=== PATIENT | male | born 1950 | race Caucasian/White ===

== ENCOUNTER 2016-10-08 12:39 | Observation (INO) ==
[2016-10-08] MEDS ORDERED: NS 1,000 ML IV ONE (13:43)
[2016-10-08 14:02] LABS: ALLEN TEST YES; BE 0.3 mmoll (-3.0-3.0); BLOOD TYPE ARTERIAL; DRAW SITE R RADIAL; METHB 1.3 % (0.0-1.5); O2(CT) 16.1 mL/dL (15.0-23.0); PCO2(98.6) 48 mmHg (35-45); PO2(98.6) 55 mmHg (60-100); SAMPLE BLOOD; SAO2 93.7 % (95.0-100.0); THB 12.7 g/dL (11.5-17.4); pH(98.6) 7.35 (7.35-7.45)
[2016-10-08 14:03] LABS: MODALITY ROOM AIR
--- NOTE | 2016-10-08 14:32 | Diag Imaging Result Document ---
PROCEDURE NAME: CHEST-PORTABLE - 10/08/2016 AP PORTABLE CHEST AT 1350 HOURS: FINDINGS: There are no previous studies available for comparison. There is no evidence of acute cardiac or pulmonary disease. IMPRESSION: No acute disease.
[2016-10-08 14:45] LABS: BASO% 0.1 % (0.0-0.8); EOS# 0.01 X1000 (0.0-0.7); EOS% 0.1 % (0.0-10.0); HEMATOCRIT 40.6 % (42.0-52.0); HEMOGLOBIN 13.3 g/dL (14.0-18.0); LYMPH# 0.52 X1000 (1.2-3.4); LYMPH% 6.1 % (20.5-51.1); MANUAL DIFF NEEDED? NO; MCH 33.1 PG (27-31); MCHC 32.8 g/dL (33-37); MONO# 0.21 X1000 (0.11-0.59); MONO% 2.5 % (1.7-9.3); MPV 11.2 FL (7.4-10.4); NEUT% 91.2 % (42.2-75.2); PLT 90 X1000 (130-400); RBC 4.02 XMIL (4.7-6.1)
[2016-10-08 14:48] LABS: INR 1.09; PROTIME 11.5 Seconds (9.2-11.7); PTT 25.5 Seconds (22.0-36.0)
[2016-10-08 14:54] LABS: ALBUMIN 4.1 g/dL (3.5-5.0); CALCIUM 9.5 mg/dL (8.8-10.2); MAGNESIUM 1.7 mg/dL (1.5-2.7); TOTAL BILIRUBIN 0.6 mg/dL (0.20-1.00); TOTAL PROTEIN 7.4 g/dL (6.3-8.3)
--- NOTE | 2016-10-08 16:01 | EKG Report ---
Test Performed on : 10/08/2016 2:56:35 PM Test Reason : Chest Pain Blood Pressure : / mmHG Vent. Rate : 074 BPM Atrial Rate : 074 BPM P-R Int : 162 ms QRS Dur : 100 ms QT Int : 414 ms P-R-T Axes : 023 -42 014 degrees QTc Int : 459 ms Normal sinus rhythm. Left axis deviation Moderate voltage criteria for LVH, may be normal variant Abnormal ECG When compared with ECG of 15-FEB-2016 08:56, No significant change was found Unconfirmed Result
[2016-10-08] MEDS ORDERED: SOLU-MEDROL IV ONE (16:49)
[2016-10-08] MEDS ORDERED: DUONEB (A & A) INH ONE (16:49)
--- NOTE | 2016-10-08 17:41 | PROVIDER DOCUMENTATION ---
This chart was entered by Stephy Dumont Scribe, acting as scribe for Rush Delgadillo MD. HPI-General Adult - General Chief Complaint: Post Op Complaint Stated Complaint: weakness, dizziness Time Seen by Provider: 10/08/16 13:00 Source: patient Allergies/Adverse Reactions: Patient Allergies Allergy/AdvReac Type Severity Reaction Status Date / Time adebrin Allergy NAUSEA/VOMI Uncoded 10/08/16 13:00 TING Home Medications: Home Medication List Medication Instructions Recorded Confirmed Last Taken Type Cyanocobalamin (Vitamin B-12) 1,000 mcg PO DAILY 02/15/16 10/08/16 10/07/16 History [Vitamin B-12] Finasteride 5 mg PO DAILY 02/15/16 10/08/16 10/07/16 History Levothyroxine [Synthroid] 125 microgm PO DAILY 02/15/16 10/08/16 10/08/16 04:30 History Omeprazole [Prilosec] 40 mg PO DAILY 02/15/16 10/08/16 10/07/16 History Pyridoxine HCl [Vitamin B-6] 100 mg PO DAILY 02/15/16 10/08/16 10/07/16 History Donepezil [Aricept] 10 mg PO DAILY 10/03/16 10/08/16 10/08/16 04:30 History Aspirin [Aspir-Low] 81 mg PO DAILY 10/08/16 10/08/16 Unknown History Escitalopram Oxalate [Lexapro] 1 tab PO DAILY 10/08/16 10/08/16 Unknown History Hydrocodone/Acetaminophen [Lortab 1 tab PO Q4-6H PRN PRN 10/08/16 10/08/16 Unknown History 5-325 mg Tablet] - History of Present Illness -Gen Adult Nature of Presenting Problems: Pt is 66 y/o M presents to the ED with weakness. Pt states having hernia repair this am. Pt states when getting home he felt weak. Pt denies pain. Location of Pain/Injury: reports: generalized Pain Radiation: reports: no radiation Quality of Pain: reports: aching Severity: reports: mild Onset/Duration: reports: this morning Timing: reports: still present Context/Activities at Onset: reports: light activity Modifying Factors: improves with: nothing Associated Symptoms: reports: weakness. denies: anxiety, arm pain, back/neck pain, chest pain, constipation, cough, diaphoresis, diarrhea, dizziness, EENT symptoms, fatigue, fever/chills, genitourinary problems, headaches, heartburn, joint pain, loss of appetite, malaise, muscle aches, sinus congestion/drainage, nausea, rash, seizure, shortness of breath, sensory/motor loss, pain with inspiration, swelling/mass in abdomen, syncope, vomiting, trouble walking Similar Symptoms Previously?: No Recently seen or treated by another doctor?: No Review of Systems - Adult - REVIEW OF SYSTEMS - ADULT Constitutional: reports: no symptoms reported Eyes: reports: no symptoms reported Ears, Nose, Mouth & Throat: reports: no symptoms reported Cardiovascular: reports: no symptoms reported Respiratory: reports: no symptoms reported Gastrointestinal: reports: no symptoms reported Genitourinary: reports: no symptoms reported Musculoskeletal: reports: muscle weakness. denies: bone pain, back pain, joint pain, neck pain Integumentary: reports: no symptoms reported Neurological: reports: no symptoms reported Psychiatric: reports: no symptoms reported Endocrine: reports: no symptoms reported Hematologic/Lymphatic: reports: no symptoms reported Allergic/Immunologic: reports: no symptoms reported All Other Systems: Reviewed and Negative Past History - Adult - PAST MEDICAL HISTORY-ADULT Review of Records: reports: Nursing Assessment Review, Medications Reviewed, Social history reviewed & non-contributory. Major Childhood Illnesses: reports: denies history Cardiovascular: reports: denies history Respiratory: reports: sleep apnea Gastrointestinal: reports: denies history Obstetrical/Gynecological: reports: denies history Genitourinary: reports: kidney stones Musculoskeletal: reports: denies history Neurological: reports: denies history Endocrine/Immune: reports: thyroid disorder Other Conditions: reports: denies history - PRIOR SURGERIES/PROCEDURES Surgical/Procedure History: reports: appendectomy, cholecystectomy, tonsillectomy, hernia repair - IMMUNIZATION STATUS Childhood Immunizations: See Nurse Assessment Flu Vaccine: See Nurse Assessment - FAMILY HISTORY Family History: reviewed, not pertinent - SOCIAL HISTORY Smoking: denies Substance Use: denies Living Situation: family Physical Exam-General - PHYSICAL EXAM-ADULT Initial Vital Signs Reviewed: Yes - CONSTITUTIONAL General Appearance: appears well, alert, no apparent distress - EYES Eyes: PERRL/EOMI, pink conjunctivae - HEAD, EARS, NOSE, MOUTH & THROAT HENMT: normocephalic/atraumatic, moist mucous membranes, normal ENT inspection, TMs normal, pharynx normal - NECK Neck: non-tender, full range of motion, supple, normal inspection - RESPIRATORY Respiratory: chest non-tender, lungs clear, normal breath sounds, no pleuratic chest pain, no respiratory distress, no accessory muscle use - CARDIOVASCULAR Cardiovascular: normal peripheral pulses, regular rate, rhythm, no edema, no gallop, no JVD, no murmur - GASTROINTESTINAL (ABDOMEN) Abdominal Exam: normal bowel sounds, soft, no organomegaly, no pulsatile mass, distended, tenderness - LYMPHATIC Lymphatic: no adenopathy - MUSCULOSKELETAL Back Exam: normal inspection, no CVA tenderness, no vertebral tenderness Extremity: normal range of motion, non-tender, normal gait, normal inspection, no pedal edema, no calf tenderness, normal capillary refill, pelvis stable - SKIN Integumentary: normal color, normal turgor, warm/dry - NEUROLOGIC Neurologic: grossly normal, no motor/sensory deficits - PSYCHIATRIC Psych/Mental Status: normal mood/affect, normal thought content, normal thought process, oriented x 3 Progress - PLAN OF CARE/RESULTS Progress/Plan/Lab Results: Vital Signs - 8 hr 10/08/16 12:50 Temperature 97.4 F L Pulse Rate 90 Respiratory Rate 18 Blood Pressure 115/69 O2 Sat by Pulse Oximetry 89 L Laboratory Tests 10/08/16 10/08/16 10/08/16 13:51 14:21 14:21 WBC 8.57 RBC 4.02 L Hgb 13.3 L Hct 40.6 L MCV 101.0 H MCH 33.1 H MCHC 32.8 L RDW Std Deviation 14.0 Plt Count 90 L MPV 11.2 H Neut % (Auto) 91.2 H Lymph % (Auto) 6.1 L [place] % (Auto) 2.5 Eos % (Auto) 0.1 Baso % (Auto) 0.1 Neut # (Auto) 7.82 H Lymph # (Auto) 0.52 L [place] # (Auto) 0.21 Eos # (Auto) 0.01 Baso # (Auto) 0.01 PT INR PTT (Actin FS) D-Dimer Specimen Type ARTERIAL Sample Site R RADIAL pH 7.35 pCO2 48 H pO2 55 L HCO3 25.0 Base Excess 0.3 Oxyhemoglobin 90.3 L ABG O2 Sat (Calculated) 16.1 ABG O2 Saturation 93.7 L ABG Carboxyhemoglobin 2.30 ABG Methemoglobin 1.3 Anthony Test YES A-a O2 Difference 35.0 Total Hemoglobin 12.7 Lactate 1.70 Blood Gas Modality ROOM AIR FiO2 % 21.0 Sodium 137 Potassium 5.0 Chloride 99 Carbon Dioxide 28 Anion Gap 10 BUN 19 Creatinine 1.3 H Estimated GFR/1.73 m2 55 BUN/Creatinine Ratio 15 Glucose 141 H Calculated Osmolality 278 Calcium 9.5 Magnesium 1.7 Total Bilirubin 0.60 AST 28 ALT 32 Alkaline Phosphatase 82 Creatine Kinase 204 Troponin T Yna-A-Uaepxlvokbl Pept Total Protein 7.4 Albumin 4.1 Globulin 3.3 Albumin/Globulin Ratio 1.2 10/08/16 10/08/16 10/08/16 14:21 14:21 14:21 WBC RBC Hgb Hct MCV MCH MCHC RDW Std Deviation Plt Count MPV Neut % (Auto) Lymph % (Auto) [place] % (Auto) Eos % (Auto) Baso % (Auto) Neut # (Auto) Lymph # (Auto) [place] # (Auto) Eos # (Auto) Baso # (Auto) PT 11.5 INR 1.09 PTT (Actin FS) 25.5 D-Dimer 0.61 H Specimen Type Sample Site pH pCO2 pO2 HCO3 Base Excess Oxyhemoglobin ABG O2 Sat (Calculated) ABG O2 Saturation ABG Carboxyhemoglobin ABG Methemoglobin Anthony Test A-a O2 Difference Total Hemoglobin Lactate Blood Gas Modality FiO2 % Sodium Potassium Chloride Carbon Dioxide Anion Gap BUN Creatinine Estimated GFR/1.73 m2 BUN/Creatinine Ratio Glucose Calculated Osmolality Calcium Magnesium Total Bilirubin AST ALT Alkaline Phosphatase Creatine Kinase Troponin T Qtl-H-Etwbdeagoov Pept 332 H Total Protein Albumin Globulin Albumin/Globulin Ratio 10/08/16 14:21 WBC RBC Hgb Hct MCV MCH MCHC RDW Std Deviation Plt Count MPV Neut % (Auto) Lymph % (Auto) [place] % (Auto) Eos % (Auto) Baso % (Auto) Neut # (Auto) Lymph # (Auto) [place] # (Auto) Eos # (Auto) Baso # (Auto) PT INR PTT (Actin FS) D-Dimer Specimen Type Sample Site pH pCO2 pO2 HCO3 Base Excess Oxyhemoglobin ABG O2 Sat (Calculated) ABG O2 Saturation ABG Carboxyhemoglobin ABG Methemoglobin Anthony Test A-a O2 Difference Total Hemoglobin Lactate Blood Gas Modality FiO2 % Sodium Potassium Chloride Carbon Dioxide Anion Gap BUN Creatinine Estimated GFR/1.73 m2 BUN/Creatinine Ratio Glucose Calculated Osmolality Calcium Magnesium Total Bilirubin AST ALT Alkaline Phosphatase Creatine Kinase Troponin T < 0.010 Wxl-Z-Kqdyqurphjy Pept Total Protein Albumin Globulin Albumin/Globulin Ratio Orders Category Date Time Status Cardiac Monitoring DIRECTED Care 10/08/16 13:43 Active Saline Loc NOW Care 10/08/16 13:43 Active ABD/PELVIS/PULM ARTERIES [CT] Stat Exams 10/08/16 14:37 Taken CHEST-PORTABLE [RAD] Stat Exams 10/08/16 13:43 Draft ABG [RESP] Routine Lab 10/08/16 13:51 Completed BLOOD CULTURE [BLDCUL] Stat Lab 10/08/16 14:21 Results CBC WITH ELECTRONIC DIFF [HEME] Stat Lab 10/08/16 14:21 Completed CK PROFILE [SP CHEM] Stat Lab 10/08/16 14:21 Completed COMPREHENSIVE METABOLIC PANEL [CHEM] Stat Lab 10/08/16 14:21 Completed D-DIMER [CHEM] Stat Lab 10/08/16 14:21 Completed MAGNESIUM [CHEM] Stat Lab 10/08/16 14:21 Completed PRO B-NATRIURETIC PEPTIDE Stat Lab 10/08/16 14:21 Completed PROTIME WITH INR [COAG] Stat Lab 10/08/16 14:21 Completed PTT [COAG] Stat Lab 10/08/16 14:21 Completed TROPONIN T Stat Lab 10/08/16 14:21 Completed 0.9% Sodium Chloride Inj [Ns] 1,000 ml Med 10/08/16 13:43 Discontinued IV 999 mls/hr EKG [EKG] Stat Ther 10/08/16 13:43 Draft Result Diagrams: 10/08/16 14:21 10/08/16 14:21 - EKG 1 Time of EKG reading by physician:: 14:56 EKG Read and Signed by:: Rush Delgadillo EKG Interpretation (*Must complete 3 of following elements*): Abnormal ( moderate voltage criteria for LVH, may be normal variant) Rate: 74 Rhythm: normal sinus rhythm Comments: left axis deviation; - XRAY 1 XRAY: Bilateral XRAY Study: Chest Impression: Normal XRAY Interpretation: NAD - CT/MRI 1 CT Study: Angiogram Impression: Abnormal CT Results: suboptimal timing but no PE seen - CONSULTS/PCP/HOSPITALIST Notification #1 *Consult/PCP/Hospitalist*: Dr. Cervantes Time Discussed: 16:50 (Dr. Cervantes accepted admit ) Reason/Comments: Dr. Delgadillo consulted with Dr. Cervantes about admit of PT Consult Disposition: Admit Departure - Departure Time of Disposition Decision: 16:45 DIAGNOSIS: Hypoxia COPD (chronic obstructive pulmonary disease) Qualifiers: COPD type: unspecified COPD Qualified Code(s): J44.9 - Chronic obstructive pulmonary disease, unspecified Post-operative complication Qualifiers: Surgical complication system/body Area: digestive system Surgical complication type: unspecified Procedure type: digestive system Qualified Code(s): K91.89 - Other postprocedural complications and disorders of digestive system Disposition: ADMITTED INPATIENT 09 Certified Medical Emergency: Emergent Condition: Stable Additional Freetext Instructions: ED Follow Up Instructions: You have been treated by a care provider in the Emergency Department. These instructions are being provided to you so you can have an understanding of how to care for yourself upon discharge. Upon discharge from the Emergency Department, you are responsible for making arrangements for follow-up care by a physician of your choice. Take all prescribed medications as directed. Return to the Emergency Department immediately for any new or worsening symptoms. You may call the Physician Referral phone number at [phone] to obtain a list of Physicians who are taking new patients. Referrals and Follow-Ups: Martina Garner MD [Primary Care Provider] - This chart was documented by the indicated scribe, (Stephy Dumont Scribe) and accurately reflects the services I performed and decisions made by me, Rush Delgadillo MD, as attested by the provider's signature.
--- NOTE | 2016-10-08 17:48 | Diag Imaging Result Document ---
PROCEDURE NAME: ABD/PELVIS/PULM ARTERIES - 10/08/2016 CT CHEST, ABDOMEN AND PELVIS WITH INTRAVENOUS CONTRAST: FINDINGS: Chest: No effusions. The heart is mildly enlarged. No thoracic aortic aneurysm or dissection. Suboptimal timing of contrast within the main pulmonary arteries. There is normal opacification of the lower lobe pulmonary arteries. No definite filling defects. Likely atelectasis in the lower lungs. No consolidation. No enlarged mediastinal or hilar lymph nodes. IMPRESSION: 1. Suboptimal timing, but no pulmonary emboli identified. 2. Cardiomegaly. 3. Basilar atelectasis. ABDOMEN AND PELVIS WITH INTRAVENOUS CONTRAST: FINDINGS: There is subcutaneous air as well as a small amount of intraabdominal air consistent with the patient's recent surgery. A small amount of fluid is found about the liver and spleen. There is fatty infiltration of the liver. The gallbladder has been removed. The spleen is not enlarged. Normal pancreas and adrenal glands. There are bilateral renal stones. No hydronephrosis. There are also bilateral renal cysts. The largest arises from the right lower pole measuring 7.1 cm. There is inflammation in the mid mesentery. No bowel obstruction. There are scattered diverticula. The urinary bladder is distended and appears normal. The prostate is not enlarged. Likely fluid in the subcutaneous fat several centimeters above the umbilicus in the midline anterior to the abdominal wall. Normal aorta. IMPRESSION: 1. Recent abdominal surgery accounting for the inflammation in the mesentery and free air as well as fluid. 2. Cholecystectomy. 3. Fatty infiltration of the liver. 4. Bilateral renal stones and renal cysts. 5. Diverticulosis. A preliminary report was given at 3:46 PM.
[2016-10-08 19:05] LABS: HEMOGLOBIN A1C 5.2 % (4.8-6.0)
[2016-10-08 19:13] LABS: IRON SATURATION 37 %; TIBC 320 ug/dL; TOTAL IRON 119 ug/dL (53-167); UNBOUND IRON 201 ug/dL (112-346)
[2016-10-08 19:16] LABS: FREE T4 1.04 ng/dL (0.93-1.70)
--- NOTE | 2016-10-08 20:04 | HISTORY AND PHYSICAL ---
PRIMARY CARE PHYSICIAN: Martina Garner M.D. CHIEF COMPLAINT: Shortness of breath and weakness. HISTORY OF PRESENT ILLNESS: Mr. Lemon is a 66-year-old, male with a history of hypothyroidism, GERD, depression, B12 deficiency and dementia, who is status post ventral hernia repair by Dr. Aguilar earlier this morning as an outpatient. He was discharged home. When he got home he got out of his car and began to feel weak and short of breath. He had to sit down or else he stated he was going to "fall." He did not lose consciousness nor did he fall but 911 was called and the patient was brought to the ER. In the ER he was noted to be mildly hypoxic. He required oxygen to maintain O2 sats in the 90s. A CTA of the chest was done and did not reveal any pulmonary emboli. There was cardiomegaly but no acute intrathoracic abnormalities and a CT of the abdomen and pelvis also showed postprocedural changes but nothing acute. His chest x-ray was negative. Troponins are negative. His laboratory data is largely unremarkable. He does have some mild renal insufficiency, anemia but otherwise negative. He denies any chest pain but does report that he gets short of breath when he works in the yard. He also reports occasional lower extremity edema. Currently his oxygen saturation is adequate with oxygen. He is now going to be admitted for further treatment and evaluation. PAST MEDICAL HISTORY: 1. Dementia. 2. Hypothyroidism. 3. GERD. 4. B12 deficiency. 5. BPH. 6. Depression. PAST SURGICAL HISTORY: Umbilical hernia repair and recent ventral hernia repair. SOCIAL HISTORY: Patient denies tobacco, alcohol or drug use. He is . His is at home currently. He is retired as a forester and from [employer] FAMILY HISTORY: Noncontributory. REVIEW OF SYSTEMS: A 14-point review of systems was obtained and found to be negative with the exception of the HPI. ALLERGIES: HOME MEDICATIONS: Aspirin 81 mg daily, B12 1000 mcg daily, Aricept 10 mg daily , Lexapro 1 tab 5 mg daily, finasteride 5 mg daily, Hensel as directed, Synthroid 125 mcg daily, Prilosec 40 mg daily, vitamin B6 100 mg daily. PHYSICAL EXAMINATION: VITAL SIGNS: Blood pressure is 112/77, heart rate 86, respiratory rate 18, O2 saturation 95% on 2 L nasal cannula, temperature is 97.4 degrees. GENERAL: This is a well-developed, well-nourished, male, lying in a hospital bed, in no acute distress. NEUROLOGIC: The patient is slightly confused but follows commands without focal deficits. HEENT: Head is atraumatic and normocephalic. Pupils are equal, round, and reactive to light. Oral mucosa is moist. Trachea is midline. There is no JVD or carotid bruits. CHEST: Diminished at the bases but otherwise clear to auscultation bilaterally. CARDIOVASCULAR: Regular rate and rhythm. S1-S2 is noted. No murmurs, gallops , clicks, rubs. GASTROINTESTINAL: Soft with abdominal binder noted. Hypoactive bowel sounds. No distention or rigidity. EXTREMITIES: Trace edema. No clubbing or cyanosis. Pulses are palpable bilaterally. DIAGNOSTIC DATA: Chest x-ray is negative for acute process. EKG shows sinus rhythm, left axis deviation, no acute ST or T wave abnormalities. Abdomen, pelvis and pulmonary arteriogram are negative for acute process. Postprocedural changes noted in the abdomen. No PE. WBC 8.57, hemoglobin 13.3, hematocrit 40.6, platelet count 90,000. MCV is 101, PT is 11.5, INR 1.09, ABG on room air: pH 7.35, CO2 of 48, O2 of 55 , bicarbonate 25. Sodium 137, potassium 5.0, chloride 99, CO2 28, anion gap 10, BUN 19, creatinine 1.3, glucose 141, calcium 9.5, magnesium 1.7. LFTs within normal limits. Troponin and CK negative. proBNP 332. ASSESSMENT/PLAN: 1. Postprocedural dyspnea: At this time the etiology is unclear but possibly postprocedural pain versus anesthesia narcotic effect as well as possible mild congestive heart failure are all differentials. We will trend his cardiac enzymes. Check an echocardiogram in the morning. Continue oxygen and aggressive pulmonary toilet. 2. Status post ventral hernia repair: This is stable. CT does not show any acute postprocedure abnormalities. We will monitor this closely. 3. Apparent chronic kidney disease: Creatinine 1.3. Creatinine done 2 months ago shows creatinine of 1.4. We will monitor this closely. 4. Macrocytic anemia: We will check iron studies and treat accordingly. He is on B12 and B6. 5. Hypothyroidism: Chronic and stable, continue Synthroid. 6. Dementia: Chronic and stable, continue Aricept. 7. DVT prophylaxis with SCDs given his recent abdominal surgery. Further recommendations to follow. Dictated by RAYMUNDO Allan for Radha Cervantes MD cc: RAYMUNDO Allan MD Matthew L. Figh, MD Bhavna Gowda, MD The patient was seen and examined by me. I agree with the assessment and plan as dictated. ADIA
[2016-10-08] MEDS ORDERED: NORCO-5 PO PRN (20:26)
[2016-10-08] MEDS: DUONEB (A & A) INH SCH (23:30)
[2016-10-09] MEDS: DUONEB (A & A) INH SCH ×6 (03:45→23:27)
[2016-10-09 04:39] LABS: ALLEN TEST YES; BE -0.4 mmoll (-3.0-3.0); BLOOD TYPE ARTERIAL; DRAW SITE R RADIAL; METHB 1.5 % (0.0-1.5); O2(CT) 21.8 mL/dL (15.0-23.0); PO2(98.6) 76 mmHg (60-100); SAMPLE BLOOD; SAO2 96.7 % (95.0-100.0); THB 16.6 g/dL (11.5-17.4); pH(98.6) 7.32 (7.35-7.45)
[2016-10-09 04:41] LABS: MODALITY CANNULA; PCO2(98.6) 52 mmHg (35-45)
[2016-10-09] MEDS: SYNTHROID PO SCH (06:31)
[2016-10-09 06:49] LABS: AGAP 12; BUN 20 mg/dL (8-22); CALCIUM 9.4 mg/dL (8.8-10.2); CHLORIDE 99 mmol/L (98-107); COSMO 282; HDL 31 mg/dL (35-55); LDL 96 mg/dL; POTASSIUM 4.5 mmol/L (3.5-5.1); SODIUM 138 mmol/L (136-145); TCO2 27 mmol/L (25-35); TRIGLYCERIDES 109 mg/dL (39-160); VLDL 22 mg/dL
[2016-10-09] MEDS: PYRIDOXINE PO SCH (09:34)
[2016-10-09] MEDS: PROSCAR PO SCH (09:35)
[2016-10-09] MEDS: PRILOSEC PO SCH (09:35)
[2016-10-09] MEDS: VITAMIN B-12 PO SCH (09:35)
[2016-10-09] MEDS: ARICEPT PO SCH (09:36)
[2016-10-09] MEDS: ASPIRIN EC PO SCH (09:36)
[2016-10-09 11:23] LABS: URINE SOURCE CLEAN CATCH
[2016-10-09 11:33] LABS: BILIRUBIN URINE NEGATIVE (NEGATIVE); BLOOD URINE NEGATIVE (NEGATIVE); CLARITY CLEAR (CLEAR); COLOR YELLOW; GLUCOSE URINE NEGATIVE (NEGATIVE); LEUKOCYTES URINE NEGATIVE (NEGATIVE); NITRITE URINE NEGATIVE (NEGATIVE); PROTEIN URINE NEGATIVE (NEGATIVE); SP GRAVITY URINE 1.015; UROBILINOGEN URINE 0.2 EU/dL (0.2-1.0)
[2016-10-09 11:55] LABS: URINE CAST NONE SEEN /LPF; URINE CRYSTAL NONE SEEN /HPF; URINE CULTURE NEEDED? NO; URINE EPITHELIAL CELLS <10 /HPF (<10); URINE RBC <10 /HPF (<10); URINE WBC <10 /HPF (<10)
--- NOTE | 2016-10-09 15:16 | PROGRESS NOTE ---
DATE: 10/09/2016 SUBJECTIVE: The patient has no focal complaints. OBJECTIVE: Vital signs: Blood pressure 140/66, heart rate of 86, respiratory 16, temperature 98 degrees, 90% on room air. Cardiovascular: Regular rate and rhythm. Pulmonary: Bilateral breath sounds. Clear to auscultation. GI: Soft, nontender, nondistended. Bowel sounds are positive. Extremities: No clubbing or cyanosis. Lymphatics: No peripheral edema. Neurological: Nonfocal. LABORATORY DATA: Unremarkable. White count normal. CMP was normal. Cardiacs were negative. Chest x-ray was reported as negative. PROBLEM LIST: 1. Hypoxia, I think multifactorial. He is obese. He has diagnosed sleep apnea that he is not getting treated for because he cannot tolerate CPAP. CTA by report is negative but I do not see a report on that; I am not sure if it was done as an outpatient. Echo is pending. We will evaluate for home O2. If he does not qualify I think he can go home. 2. Ventral hernia repair. Appears to be stable. 3. Anemia. Appears to be stable. DISPOSITION: Hopefully home in the next 1-2 days, pending the rest of his workup. cc: Robert Garduno MD
[2016-10-09] MEDS ORDERED: HALDOL IV PRN (19:49)
[2016-10-09] MEDS: LEXAPRO PO SCH (20:42)
[2016-10-09 23:14] LABS: CK INDEX 2.8 (0.0-2.5); CK-MB 6.04 ng/mL (0.0-5.0)
[2016-10-10] MEDS: DUONEB (A & A) INH SCH ×3 (02:40→11:23)
[2016-10-10] MEDS: SYNTHROID PO SCH (06:23)
[2016-10-10 07:03] LABS: HEMATOCRIT 35.2 % (42.0-52.0); HEMOGLOBIN 11.2 g/dL (14.0-18.0); MCH 32.6 PG (27-31); MCHC 31.8 g/dL (33-37); MCV 102.3 FL (81-99); MPV 10.9 FL (7.4-10.4); RBC 3.44 XMIL (4.7-6.1)
[2016-10-10 08:23] LABS: AGAP 12; BUN 24 mg/dL (8-22); CALCIUM 9.4 mg/dL (8.8-10.2); CHLORIDE 100 mmol/L (98-107); COSMO 282; POTASSIUM 4.8 mmol/L (3.5-5.1); SODIUM 139 mmol/L (136-145); TCO2 27 mmol/L (25-35)
[2016-10-10] MEDS: VITAMIN B-12 PO SCH (10:15)
[2016-10-10] MEDS: PRILOSEC PO SCH (10:15)
[2016-10-10] MEDS: PYRIDOXINE PO SCH (10:15)
[2016-10-10] MEDS: ARICEPT PO SCH (10:15)
[2016-10-10] MEDS: ASPIRIN EC PO SCH (10:17)
[2016-10-10] MEDS: LEXAPRO PO SCH (10:17)
[2016-10-10] MEDS: PROSCAR PO SCH (10:17)
--- NOTE | 2016-10-10 12:18 | ECHO REPORT ---
ORDER DATE: 10/09/2016 INTERPRETING PHYSICIAN: Dr. Gonzales REQUESTING PHYSICIAN: Hospitalist service. CLINICAL INDICATIONS: A 66-year-old male with shortness of breath, weakness. M-MODE MEASUREMENTS: Right ventricle: 4.2 cm. Left ventricle end diastole: 6.4 cm. Left ventricle end systole: 3.9 cm. Posterior wall: 1.0 cm. Interventricular septum: 1.0 cm. Left atrium: 4.8 cm. SUMMARY OF 2-DIMENSIONAL IMAGING: This study was done utilizing intravenous Definity contrast study. The study shows the followin. The left ventricular function is hyperdynamic. Ejection fraction is in the order of 75%. No wall motion abnormality noted. 2. The right ventricle appears to be enlarged. In some views, it is moderately dilated. It shows good function. 3. The inferior vena cava is not dilated. 4. The tricuspid valve shows a mild to moderate degree of regurgitation with the pulmonary systolic pressure in the order of 38-43 mmHg. 5. The pulmonic valve is normal, color flow mapping unremarkable. 6. The mitral valve looks normal with a mild degree of regurgitation. The pulsed wave Doppler of mitral inflow is normal. The the tissue Doppler of septal and lateral mitral annulus averages 7 cm. The pulmonary venous flow is normal. There is no diastolic dysfunction. 7. The aortic valve is morphologically normal. Color flow mapping indicates a mild degree of regurgitation. A maximum gradient of 19 mmHg is noted across the outflow tract of the left ventricle. That has to do with the hyperdynamic left ventricle. There is no aortic stenosis. 8. There is no pericardial effusion, masses, nor thrombus. Clinical correlation recommended. cc: MD Rogelio Smalls CRNP
[2016-10-10 12:22] VITALS: BP 150/81
--- NOTE | 2016-10-11 02:34 | PROGRESS NOTE ---
DATE: 10/10/2016 ADDENDUM: The patient got very irate yesterday because he was not discharged home. Nurse practitioner Rj Forde had talked to him about the need for home O2 and that we did not have his echocardiogram report. We still do not have his echocardiogram report, but I think he is stable to go home. I do think he requires home oxygen. We are having difficulty getting that set up because he does not reportedly have a chronic condition such as COPD; however, I do would argue he has morbid obesity, he has obstructive sleep apnea which is partially treated with his CPAP, and likely obesity hypoventilation syndrome, which is a chronic condition that should allow him to qualify for home oxygen, which he does. His saturations have dropped to 87% without exertion. May also be contributing to some of his mental status issues. In any case, we are trying to set up home oxygen and he should go home today. No other major changes in medicine. His discharge summary, I think, this has been dictated separately. cc: Robert Garduno MD
--- NOTE | 2016-10-11 08:41 | DISCHARGE SUMMARY ---
ADMISSION DATE: 10/08/2016 DISCHARGE DATE: 10/10/2016 CONSULTATIONS: None. PERTINENT PROCEDURES: 1. Abdomen and pelvis CT showed recent abdominal surgery accounting for the inflammation of the mesentery and free air as well as fluid, cholecystectomy, fatty infiltration of the liver, bilateral renal stones and renal cysts, diverticulosis. 2. Chest x-ray showed no acute disease. DISCHARGE DIAGNOSES: 1. Hypoxia, multifactorial. 2. Obesity. 3. Sleep apnea that the patient is not yet treated for because he does not tolerate CPAP. 4. CTA was negative. 5. The patient was evaluated for home O2 and qualified. The patient was educated on turn, cough, as well as deep breathing and incentive spirometry. 6. He is also status post ventral hernia repair, stable. Pain is controlled. 7. Anemia, stable. 8. Dementia, aware. 9. Hypothyroidism. Continue Synthroid. 10.Gastroesophageal reflux disease. Continue Prilosec. 11. B12 deficiency. Continue home medications. 12.Benign prostatic hypertrophy. Continue Proscar. 13.Depression. Continue Lexapro and other home medications HOSPITAL COURSE: Briefly, Mr. Lemon is a 66-year-old male who carries a history of hypothyroidism, GERD, depression, B12 deficiency, dementia, status post ventral hernia repair by Dr. Aguilar on the day of his admission. He had this done as outpatient. He was discharged home. When he got home out of his car he began to feel weak and short of breath. He had to sit down or he felt like he was going to "fall." There was no loss of consciousness. There was no fall. In the ED the patient was noted to be mildly hypoxic. He did require O2 to maintain his O2 sats in the 90s. CT of the chest was performed and did not reveal any pulmonary emboli, and showed post surgical changes, but nothing acute. Chest x-ray was negative, as well as troponins. Laboratory data was largely unremarkable. The patient was admitted, continued on supplemental O2 as well as aggressive pulmonary toilet. He continued with pain medication as needed given his recent ventral hernia repair. The patient was evaluated for home O2. O2 saturations on room air were 87%. He will be going home with home O2. Again, he has been educated on turn, cough, deep breathe, and the use of his incentive spirometer every hour while awake, and the need to get up and move. He was also taught how to use a pillow to help with guarding to help with the turn, cough, and deep breathing. DISCHARGE VITAL SIGNS: Temperature was 98.6, heart rate 82, respirations 16, blood pressure 154/72, O2 96% on 2 L nasal cannula. DISCHARGE DIET: Healthy heart. DISCHARGE MEDICATIONS: 1. Low dose aspirin 81 mg p.o. daily. 2. Vitamin B12 1000 mcg p.o. daily. 3. Aricept 10 mg p.o. daily. 4. Lexapro a 5 mg tablet p.o. daily. 5. 5 mg p.o. daily. 6. Lortab 5/325 one tablet q.4h. to q.6h. p.r.n. pain. 7. Synthroid 125 mcg p.o. daily. 8. Prilosec 40 mg p.o. daily. 9. Vitamin B6 100 mg p.o. daily. FOLLOWUP: The patient is being discharged home with home O2. He will need to follow up with his primary care physician, Dr. Garner, as well as Dr. Aguilar as indicated status post his surgery. The patient will return to the ED for any worsening of symptoms. DISCHARGE TIME: 30 minutes. Dictated by RAYMUNDO Oconnor for Robert Garduno MD cc: MD Martina Galeas MD
== END 2016-10-10 12:40 | disposition home or self-care (01) ==
LOC: 4N 12:39 → ED 12:39 → SUATTDRO 22:10
PROVIDERS: ATTEND Internal Medicine